=== PATIENT | female | born 1935 | race Two or more races ===

== ENCOUNTER 2019-03-23 10:02 | Inpatient (IN) | payer MEDICARE ==
[~2019-03-23] VITALS: Ht 172.7 cm; Wt 86.6 kg
--- NOTE | 2019-03-23 10:06 | NUR ---
PT DON from [place] [facility] [place] "family called and wanted her checked they said 30min GEOLOGY TEACHER she was having weakness" PT IS AAOX3, NOT IN RESPIRATORY DISTRESS, HOOKED TO GAS PUMP ATTENDANT, KEPT RESTED AND COMFORTABLE, WILL CONTINUE TO MONITOR.
--- NOTE | 2019-03-23 10:08 | NUR ---
PT O2 SATURATION 88% ON ROOM AIR.
--- NOTE | 2019-03-23 10:10 | NUR ---
SEEN AND EXAMINED BY DR. HO.
--- NOTE | 2019-03-23 10:12 | NUR ---
IV LINE ESTABLISHED, LABS DRAWNED AND SENT TO LAB.
[2019-03-23 10:25] LABS: BASOPHILS # (AUTO) 0.1 /CMM (0.0-0.2); BASOPHILS % (AUTO) 0.8 % (0.0-2.0); EOSINOPHILS % (AUTO) 0.1 % (0.0-6.0); HEMATOCRIT 40 % (33-45); HEMOGLOBIN 13.2 g/dL (11.5-14.8); LYMPHOCYTES % (AUTO) 9.1 % (20.0-44.0); MEAN CORPUSCULAR HGB CONC 33 g/dl (31.0-36.0); MEAN CORPUSCULAR VOLUME 101 fL (82-100); MONOCYTES % (AUTO) 9.2 % (2.0-12.0); NEUTROPHILS # (AUTO) 8.9 /CMM (1.8-8.9); NEUTROPHILS % (AUTO) 80.8 % (43.0-81.0); PLATELET COUNT (AUTO) 272 /CMM (150-450); RED BLOOD CELL COUNT(AUTO) 3.94 MIL/uL (4.0-5.2)
--- NOTE | 2019-03-23 10:30 | NUR ---
PT IS WHEELED TO CT SCAN VIA [facility].
[2019-03-23 10:37] LABS: CALCIUM, SERUM 9.5 mg/dL (8.5-10.1); CARBON DIOXIDE 23 mmol/L (21-32); CHLORIDE 105 mmol/L (98-107); CREATININE 1.5 mg/dL (0.6-1.3); GLUCOSE 158 mg/dL (74-106); POTASSIUM 3.6 mmol/L (3.5-5.1); SODIUM SERUM 139 mmol/L (136-145); UREA NITROGEN, BLOOD 16 mg/dL (7-18)
[2019-03-23 10:44] LABS: ALANINE AMINOTRANSFERASE 9 U/L (12-78); ALBUMIN 3.1 g/dL (3.4-5.0); ALKALINE PHOSPHATASE 63 U/L (46-116); ASPARTATE AMINOTRANSFERASE 12 U/L (15-37); BILIRUBIN,DIRECT 0.1 mg/dL (0.0-0.2); BILIRUBIN,TOTAL 0.5 mg/dL (0.2-1.0); TOTAL PROTEIN, SERUM 7.3 g/dL (6.4-8.2)
--- NOTE | 2019-03-23 11:05 | NUR ---
URINE SPECIMEN COLLECTED AND SENT TO LAB.
[2019-03-23 11:07] LABS: BILIRUBIN,URINE Negative (NEGATIVE); BLOOD, URINE Moderate Ery/uL (NEGATIVE); COLOR,URINE Yellow (YELLOW); KETONES,URINE Negative (NEGATIVE); LEUKOCYTE ESTERASE ,URINE Large (NEGATIVE); NITRITE, URINE Positive (NEGATIVE); PROTEIN,URINE >=300 mg/dl (NEGATIVE); UGLUCOSE Negative (NEGATIVE); UROBILINOGEN,URINE 0.2 EU/dL (0.2)
[2019-03-23 11:09] LABS: APPEARANCE,URINE CLOUDY (CLEAR)
[2019-03-23 11:12] LABS: BACTERIA,URINE 1+ /HPF (None Seen); WBC,URINE 21-50 /HPF (0-3)
[2019-03-23] MEDS ORDERED: CEFTRIAXONE 1GM BAG (ER ONLY) 1 GM/50 ML PIGGYBACK IV ONE (11:30)
[2019-03-23] MEDS ORDERED: ALBUTEROL FS 2.5 MG/3 ML VIAL.NEB NEB ONE (11:30)
[2019-03-23] MEDS ORDERED: CEFTRIAXONE 1GM BAG (ER ONLY) 50 ML IV ONE (11:31)
--- NOTE | 2019-03-23 11:32 | NUR ---
CALLED NURSING SUP FOR TELE BED FOR THIS PATIENT
[2019-03-23] MEDS ORDERED: ALBUTEROL FS 2.5 MG/3 ML VIAL.NEB ONE (11:33)
--- NOTE | 2019-03-23 11:37 | NUR ---
RT AT BEDSIDE FOR BREATHING TREATMENT.
--- NOTE | 2019-03-23 11:54 | NUR ---
113-1 TELE DX UTI GEN WEAKNESS BHAVIN SIMS NP ACCEPTED
[2019-03-23 12:00] VITALS: BP 130/62
--- NOTE | 2019-03-23 12:05 | NUR ---
REPORT GIVEN TO JOLENE BULLARD FOR [facility].
[2019-03-23] MEDS ORDERED: MULT1TAB73 PO (12:09)
[2019-03-23] MEDS ORDERED: LATA2.5D7 EACHEYE (12:09)
[2019-03-23] MEDS ORDERED: FURO20TA4 PO (12:09)
[2019-03-23] MEDS ORDERED: OXYB5TAB11 PO (12:09)
[2019-03-23] MEDS ORDERED: [UNRECOGNIZED DRUG - CODE] PO (12:09)
[2019-03-23] MEDS ORDERED: TRAM50TA2 PO (12:09)
[2019-03-23] MEDS ORDERED: CHOL100062 PO (12:09)
[2019-03-23] MEDS ORDERED: ALBU2.5V38 IH (12:09)
[2019-03-23] MEDS ORDERED: PHEN97.511 PO (12:09)
[2019-03-23] MEDS ORDERED: LITH300T PO (12:09)
[2019-03-23] MEDS ORDERED: LACT1CAP97 PO (12:09)
[2019-03-23] MEDS ORDERED: METH1TAB30 PO (12:09)
[2019-03-23] MEDS ORDERED: FERR325T23 PO (12:09)
[2019-03-23] MEDS ORDERED: LEVO150T8 PO (12:09)
[2019-03-23] MEDS ORDERED: OMEP20CA10 PO (12:09)
[2019-03-23] MEDS ORDERED: FLUT1BLS IH (12:09)
[2019-03-23] MEDS ORDERED: POTA10TA15 PO (12:09)
[2019-03-23] MEDS ORDERED: NIAC500T2 PO (12:09)
[2019-03-23] MEDS ORDERED: CITA20TA16 PO (12:09)
[2019-03-23] MEDS ORDERED: VIT1CAPS9 PO (12:09)
[2019-03-23] MEDS ORDERED: CRANBERRY FRUIT PO (12:09)
[2019-03-23] MEDS ORDERED: CARB-93 PO (12:09)
[2019-03-23] MEDS ORDERED: ESTR1VAG VG (12:09)
[2019-03-23] MEDS ORDERED: GUAI240S2 PO (12:09)
[2019-03-23] MEDS ORDERED: CLON0.5T12 PO (12:09)
[2019-03-23] MEDS ORDERED: ATOR20TA PO (12:09)
[2019-03-23] MEDS ORDERED: DIME532L3 TP (12:09)
[2019-03-23] MEDS ORDERED: CETI-102 PO (12:09)
[2019-03-23] MEDS ORDERED: OLAN5TAB3 PO (12:09)
[2019-03-23] MEDS ORDERED: ALBUTEROL FS 2.5 MG/0.5 ML VIAL.NEB NEB PRN (12:30)
[2019-03-23] MEDS ORDERED: MAGNESIUM HYDROXIDE 30 ML UDC PO PRN (12:30)
[2019-03-23] MEDS ORDERED: Z GUARD REMEDY 2 OZ OINT TP PRN (12:30)
[2019-03-23] MEDS ORDERED: ONDANSETRON HCL/PF 4 MG/2 ML VIAL IVP PRN (12:30)
[2019-03-23] MEDS ORDERED: IPRATROPIUM NEB FS 0.5 MG/2.5 ML AMPUL.NEB NEB PRN (12:30)
[2019-03-23] MEDS ORDERED: ZOLPIDEM TARTRATE 5 MG TABLET PO PRN (12:30)
[2019-03-23] MEDS ORDERED: ACETAMINOPHEN 325 MG TABLET PO PRN (12:30)
[2019-03-23] MEDS ORDERED: MAG HYDROX/AL HYDROX/SIMETH 30 ML UDC PO PRN (12:30)
[2019-03-23 13:01] VITALS: BP 127/77
--- NOTE | 2019-03-23 13:50 | NUR ---
RN/TELE INITIAL NOTES RECEIVED PATIENT FROM [facility] PATIENT IS WEAK, SLIGHTLY CONFUSED, IS ON N/C 3L/MIN WITH AN O2 SATURATION 97% ALOC X2, ADMITTING DIAGNOSES GENERAL WEAKNESS, AND UTI UNDER THE CARE OF BHAVIN JAMES RN, AWNING CRAFTSPERSON. AT BEDSIDE DISCUSSING POC. PLACED ON TELE MONITOR SR 85BPM, IV 18 GAUGE ON R-HAND FLUSHED, NO S/S OF INFECTION OR INFILTRATION, SL. BODY CHECK DONE BELONGINGS CHECKED, PATIENT IS INCONTINENT. BED ALARM ON, BED LOCKED IN LOWEST POSITION. WILL CONTINUE TO MONITOR PATIENT.
[2019-03-23] MEDS: IV NS 0.9% 1,000 ML IV PRN (14:04)
[2019-03-23 16:00] VITALS: BP 125/63
[2019-03-23 16:06] VITALS: BP 125/63
--- NOTE | 2019-03-23 16:32 | NUR ---
HORSEBACK RIDING INSTRUCTOR NOTE SPOKE WITH BHAVIN SIMS RN MICROECONOMICS PROFESSOR NOTIFIED ABOUT THAT DNR \DNI WISHES AND POLST , STATED THAT WILL PLACE ORDER
--- NOTE | 2019-03-23 18:46 | NUR ---
TELE/RN NOTES PATIENT IS LOC X 2 CONFUSED, CAME IN W/ GENERALIZED WEAKNESS AND UTI. VITAL SIGNS STABLE AND HR REGULAR ON TELE MONITOR. IVF N/S RUNNING @ 75ML/H IN R HAND 18 MIRNA FLUSHING WELL WITH NO S/S OF INFECTION OR INFILTRATION. DVT PUMP PLACED. BRUISES ON ARMS DOCUMENTED AND PHOTOGRAPHED. IS ON A CARDIAC LOW FAT DIET. PATIENT IS ON 3L/MIN N/C SATURATION @97%. FAMILY AT BEDSIDE WITH PATIENT, HAD MOST OF DINNER. NOTIFIED JACOB DELCID RN, APPRENTICE/LINEMAN. ABOUT FAMILY REQUEST OF ZYPREXA AND CLOZANAPAM WHICH ARE MEDICATIONS THE CLIENT TAKES AT HOME ON A REGULAR BASIS. ENDORSED PATIENT TO NIGHT NURSE TO CONTINUE CARE AND ORDERS PRESCRIBED. BED LOCKED IN LOWEST POSITION WITH BED ALARM ON.
--- NOTE | 2019-03-23 19:10 | NUR ---
TELE/RN NOTES BETHANY RN, MONITORING AND EVALUATION ADVISOR NOTIFIED ABOUT MED RECON AND FAMILY REQUESTS.
--- NOTE | 2019-03-23 19:30 | NUR ---
RN INITIAL SHIFT NOTED RECEIVED PATIENT IN BED, AWAKE, ALERT AND ORIENTED X3. FAMILY MEMBER AT BEDSIDE, PLAN OF CARE DISCUSSED IN DETAIL WITH PATIENT AND FAMILY. ALL QUESTIONS ANSWERED ABLE. IV SITE PATENT AND INTACT, FLUSHED WITH NS, ONGOING FLUIDS ORDERED., NO S/S OF INFILTRATION OR PHLEBITIS NOTED. WILL CONTINUE TO CLOSELY MONITOR THE PATIENT
[2019-03-23 20:00] VITALS: BP 161/103
[2019-03-23] MEDS: OXYBUTYNIN CHLORIDE 5 MG TABLET PO SCH (20:28)
[2019-03-23] MEDS: LACTOBACILLUS RHAMNOSUS GG 1 EACH CAP.SPRINK PO SCH (20:28)
[2019-03-23] MEDS: CARBIDOPA/LEVODOPA 25/100 MG 1 UDTAB PO SCH (20:28)
[2019-03-23] MEDS: FERROUS SULFATE (325 MG) 325 MG/TAB TABLET PO SCH (20:28)
[2019-03-23 20:30] VITALS: BP 147/81
[2019-03-23] MEDS: ATORVASTATIN 10 MG TABLET PO SCH (21:19)
[2019-03-23] MEDS: clonazePAM 0.5 MG TABLET PO SCH (21:19)
[2019-03-23] MEDS: OLANZAPINE 5 MG TABLET PO SCH (21:19)
[2019-03-23] MEDS: LATANOPROST EYE DROP 0.005% 2.5 ML BOTTLE EACHEYE SCH (21:19)
[2019-03-24] MEDS: IV NS 0.9% 1,000 ML IV PRN ×2 (02:40→21:12)
[2019-03-24 04:00] VITALS: BP 132/42
[2019-03-24 07:16] LABS: BASOPHILS % (AUTO) 0.4 % (0.0-2.0); EOSINOPHILS % (AUTO) 0.6 % (0.0-6.0); HEMATOCRIT 33 % (33-45); HEMOGLOBIN 11.1 g/dL (11.5-14.8); LYMPHOCYTES # (AUTO) 1.6 /CMM (0.8-4.8); LYMPHOCYTES % (AUTO) 16.6 % (20.0-44.0); MEAN CORPUSCULAR HGB CONC 34 g/dl (31.0-36.0); MEAN CORPUSCULAR VOLUME 99 fL (82-100); MONOCYTES # (AUTO) 1.5 /CMM (0.1-1.30); MONOCYTES % (AUTO) 15.4 % (2.0-12.0); NEUTROPHILS # (AUTO) 6.6 /CMM (1.8-8.9); PLATELET COUNT (AUTO) 220 /CMM (150-450); RED BLOOD CELL COUNT(AUTO) 3.32 MIL/uL (4.0-5.2); WHITE BLOOD COUNT (AUTO) 9.8 K/uL (4.3-11.0)
--- NOTE | 2019-03-24 07:19 | NUR ---
RN OPENING NOTES RECEIVED PATIENT ASLEEP, BUT EASILY AROUSABLE. NO PAIN OR SOB. ON ROOM AIR. PATIENT IS INCONTINENT AND USES A DIAPER. HAS IVF NS RUNNING AT 75 ML/HR. MORNING LABS STILL PENDING. BED LOCKED AND IN LOWEST POSITION. CALL LIGHT WITHIN REACH. WILL CONT TO MONITOR PATIENT
[2019-03-24] MEDS: LEVOTHYROXINE SODIUM 75 MCG TABLET PO SCH (07:49)
[2019-03-24] MEDS: PANTOPRAZOLE 40 MG TABLET.DR PO SCH (07:50)
[2019-03-24 07:59] LABS: CALCIUM, SERUM 8.6 mg/dL (8.5-10.1); CARBON DIOXIDE 23 mmol/L (21-32); CHLORIDE 109 mmol/L (98-107); CREATININE 1.2 mg/dL (0.6-1.3); GLUCOSE 121 mg/dL (74-106); MAGNESIUM 2.1 mg/dL (1.8-2.4); PHOSPHORUS 3.4 mg/dL (2.5-4.9); POTASSIUM 3.3 mmol/L (3.5-5.1); SODIUM SERUM 142 mmol/L (136-145); UREA NITROGEN, BLOOD 17 mg/dL (7-18)
[2019-03-24 08:00] VITALS: BP 124/60
[2019-03-24 08:19] LABS: CHOLESTEROL 130 mg/dL (<200); HDL CHOLESTEROL 70 mg/dL (40-60); LDL 49 mg/dL (0-99); TRIGLYCERIDES 97 mg/dL (30-150)
[2019-03-24] MEDS: FLUTICASONE/VILANTEROL 1 EACH BLST.W.DEV IH SCH (08:54)
[2019-03-24] MEDS: cetrizine 10 MG TABLET PO SCH (08:55)
[2019-03-24] MEDS: CARBIDOPA/LEVODOPA 25/100 MG 1 UDTAB PO SCH ×3 (08:55→16:10)
[2019-03-24] MEDS: CITALOPRAM HYDROBROMIDE 20 MG TABLET PO SCH (08:55)
[2019-03-24] MEDS: MULTIVITAMINS,THERAGRAN 1 UDTAB TABLET PO SCH (08:55)
[2019-03-24] MEDS: FUROSEMIDE 20 MG TABLET PO SCH (08:55)
[2019-03-24] MEDS: FERROUS SULFATE (325 MG) 325 MG/TAB TABLET PO SCH ×2 (08:55→16:08)
[2019-03-24] MEDS: CHOLECALCIFEROL 1,000 UNIT TABLET (VIT D3) PO SCH (08:55)
[2019-03-24] MEDS: LACTOBACILLUS RHAMNOSUS GG 1 EACH CAP.SPRINK PO SCH ×2 (08:56→16:08)
[2019-03-24] MEDS: OXYBUTYNIN CHLORIDE 5 MG TABLET PO SCH ×3 (08:56→16:10)
[2019-03-24] MEDS ORDERED: POTASSIUM CHLORIDE 20 MEQ TAB.PRT.SR PO ONE (09:00)
[2019-03-24] MEDS: CEFTRIAXONE 1 G in IV D5W 50 ML IV SCH (12:24)
--- NOTE | 2019-03-24 13:00 | NUR ---
RN NOTE FAMILY ASKING WHEN THE PATIENT WILL HAVE ECHO. MD MADE AWARE, MD ORDERED ECHO TO BE DONE TODAY
[2019-03-24 16:00] VITALS: BP 130/68
--- NOTE | 2019-03-24 16:52 | NUR ---
RN NOTE FAMILY REQUESTED TO HAVE THE BREATHING TX SCHEDULED BID INSTEAD OF PRN. MD MADE AWARE, ORDER CARRIED OUT
--- NOTE | 2019-03-24 18:50 | NUR ---
RN CLOSING NOTE PATIENT STABLE THROUGHOUT THE SHIFT. NO PAIN NOR SOB NOTED. ALL MEDS TAKEN. VS STABLE. 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 BREATHING TX CHANGED TO BID FROM PRN. WILL ENDORSE TO NOC SHIFT RN.
--- NOTE | 2019-03-24 19:30 | NUR ---
RN NOTES RECEIVED PT AWAKE ON BED, A/OX 2-3, IV LINE INFILTRATED , DENIES PAIN, NO SOB, CALL LIGHT WITHIN REACH, [id number], CONTINUE TO MONITOR
[2019-03-24 20:00] VITALS: BP 127/65
[2019-03-24 20:19] VITALS: BP 127/65
[2019-03-24] MEDS: LATANOPROST EYE DROP 0.005% 2.5 ML BOTTLE EACHEYE SCH (21:17)
[2019-03-24] MEDS: ATORVASTATIN 10 MG TABLET PO SCH (21:18)
[2019-03-24] MEDS: OLANZAPINE 5 MG TABLET PO SCH (21:18)
[2019-03-24] MEDS: clonazePAM 0.5 MG TABLET PO SCH (21:18)
--- NOTE | 2019-03-24 21:30 | NUR ---
RN NOTES new iv line was inserted to left forearm by another nurse
[2019-03-25 03:56] VITALS: BP 130/70
[2019-03-25 04:00] VITALS: BP 130/70
--- NOTE | 2019-03-25 06:19 | NUR ---
RN NOTES AWAKE, DENIES PAIN, NO SOB, REFUSED TO BE CHANGE.. PT WANTS TO DO IT LATER, CALL LIGHT WITHIN REACH, [id number], PT. NEEDS ATTENDED
[2019-03-25 06:51] LABS: BASOPHILS % (AUTO) 0.4 % (0.0-2.0); EOSINOPHILS % (AUTO) 1.8 % (0.0-6.0); HEMATOCRIT 32 % (33-45); HEMOGLOBIN 10.9 g/dL (11.5-14.8); LYMPHOCYTES # (AUTO) 1.9 /CMM (0.8-4.8); MEAN CORPUSCULAR HGB CONC 34 g/dl (31.0-36.0); MEAN CORPUSCULAR VOLUME 99 fL (82-100); MONOCYTES # (AUTO) 1.1 /CMM (0.1-1.30); MONOCYTES % (AUTO) 13.8 % (2.0-12.0); PLATELET COUNT (AUTO) 220 /CMM (150-450); RED BLOOD CELL COUNT(AUTO) 3.23 MIL/uL (4.0-5.2); WHITE BLOOD COUNT (AUTO) 8.2 K/uL (4.3-11.0)
--- NOTE | 2019-03-25 07:15 | NUR ---
RN MS OPENING NOTES RECEIVED REPORT FROM AGRISCIENCE TEACHER RN. PT IS ASLEEP IN BED WITH NO OBVIOUS SIGNS OF DISTRESS NOTED. BED IS LOCKED AND IN LOWEST POSITION WITH CALL LIGHT IN REACH. WILL CONTINUE TO MONITOR.
[2019-03-25 07:19] LABS: CALCIUM, SERUM 8.8 mg/dL (8.5-10.1); CARBON DIOXIDE 23 mmol/L (21-32); CHLORIDE 111 mmol/L (98-107); CREATININE 1.3 mg/dL (0.6-1.3); GLUCOSE 124 mg/dL (74-106); MAGNESIUM 2.2 mg/dL (1.8-2.4); PHOSPHORUS 3.4 mg/dL (2.5-4.9); POTASSIUM 3.9 mmol/L (3.5-5.1); SODIUM SERUM 143 mmol/L (136-145); UREA NITROGEN, BLOOD 17 mg/dL (7-18)
[2019-03-25 08:00] VITALS: BP 119/72
[2019-03-25] MEDS: LEVOTHYROXINE SODIUM 75 MCG TABLET PO SCH (08:04)
[2019-03-25] MEDS: PANTOPRAZOLE 40 MG TABLET.DR PO SCH (08:04)
[2019-03-25] MEDS: MULTIVITAMINS,THERAGRAN 1 UDTAB TABLET PO SCH (08:54)
[2019-03-25] MEDS: OXYBUTYNIN CHLORIDE 5 MG TABLET PO SCH ×3 (08:54→17:15)
[2019-03-25] MEDS: CHOLECALCIFEROL 1,000 UNIT TABLET (VIT D3) PO SCH (08:54)
[2019-03-25] MEDS: cetrizine 10 MG TABLET PO SCH (08:54)
[2019-03-25] MEDS: CITALOPRAM HYDROBROMIDE 20 MG TABLET PO SCH (08:54)
[2019-03-25] MEDS: LACTOBACILLUS RHAMNOSUS GG 1 EACH CAP.SPRINK PO SCH ×2 (08:54→17:14)
[2019-03-25] MEDS: FERROUS SULFATE (325 MG) 325 MG/TAB TABLET PO SCH ×2 (08:54→17:15)
[2019-03-25] MEDS: FUROSEMIDE 20 MG TABLET PO SCH (08:54)
[2019-03-25] MEDS: CARBIDOPA/LEVODOPA 25/100 MG 1 UDTAB PO SCH ×3 (08:54→17:15)
[2019-03-25] MEDS: FLUTICASONE/VILANTEROL 1 EACH BLST.W.DEV IH SCH (08:55)
[2019-03-25] MEDS: CEFTRIAXONE 1 G in IV D5W 50 ML IV SCH (12:37)
[2019-03-25 16:00] VITALS: BP 128/60
[2019-03-25] MEDS: IPRATROPIUM NEB FS 0.5 MG/2.5 ML AMPUL.NEB NEB SCH ×2 (17:17→18:00)
--- NOTE | 2019-03-25 18:40 | NUR ---
RN MS CLOSING NOTES PT IS RESTING IN BED WITH DAUGHTER AT BEDSIDE. PT DENIES ANY PAIN OR SOB AT PRESENT TIME. BED IS LOCKED AND IN LOWEST POSITION WITH CALL LIGHT IN REACH. BEDSIDE COMMODE IS NEXT TO BED. PT HAS A L FOREARM 22 GAUGE SL. DAUGHTER AT BEDSIDE. WILL ENDORSE CONTINUITY OF CARE TO IT INFRASTRUCTURE ARCHITECT NURSE.
--- NOTE | 2019-03-25 18:56 | NUR ---
DAUGHTER OF PT IS REQUESTING NEUROLOGICAL CONSULT TO CONTACT HEROllie ABDUL
--- NOTE | 2019-03-25 19:00 | NUR ---
MS RN OPENING NOTES Received patient sitting up in bed, alert, oriented x 2. Breathing even and unlabored. On O2 at 2L via nasal cannula. Noted that IV line was out. Safety measures in place, call light within reach. Bed in low, locked position. Will continue to monitor accordingly
--- NOTE | 2019-03-25 19:45 | NUR ---
RN NOTES New IV line on LFA g#22, intact and patent. Wrapped with kerlix
[2019-03-25 20:00] VITALS: BP 139/67
[2019-03-25] MEDS: CEPHALEXIN MONOHYDRATE 500 MG CAPSULE PO SCH (20:57)
[2019-03-25] MEDS ORDERED: SULFAMETH/TRIMETH 800/160 MG 1 UDTAB TABLET PO SCH (21:00)
[2019-03-25] MEDS: LATANOPROST EYE DROP 0.005% 2.5 ML BOTTLE EACHEYE SCH (21:24)
[2019-03-25] MEDS: clonazePAM 0.5 MG TABLET PO SCH (21:25)
[2019-03-25] MEDS: ATORVASTATIN 10 MG TABLET PO SCH (21:26)
[2019-03-25] MEDS: OLANZAPINE 5 MG TABLET PO SCH (21:27)
[2019-03-26 04:00] VITALS: BP 139/67
[2019-03-26] MEDS: CEPHALEXIN MONOHYDRATE 500 MG CAPSULE PO SCH (04:48)
--- NOTE | 2019-03-26 06:30 | NUR ---
MS RN CLOSING NOTES Patient resting in bed. No acute change throughout the shift. On O2 @ 2LPM via NC. All needs attended and met. Safety measures in place. Will endorse continuity of care to oncoming RN.
[2019-03-26 07:14] LABS: ALANINE AMINOTRANSFERASE 17 U/L (12-78); ALBUMIN 2.2 g/dL (3.4-5.0); ALKALINE PHOSPHATASE 49 U/L (46-116); ASPARTATE AMINOTRANSFERASE 18 U/L (15-37); BILIRUBIN,TOTAL 0.3 mg/dL (0.2-1.0); CALCIUM, SERUM 8.6 mg/dL (8.5-10.1); CARBON DIOXIDE 24 mmol/L (21-32); CHLORIDE 111 mmol/L (98-107); CREATININE 1.2 mg/dL (0.6-1.3); GLUCOSE 123 mg/dL (74-106); MAGNESIUM 2.1 mg/dL (1.8-2.4); PHOSPHORUS 3.3 mg/dL (2.5-4.9); POTASSIUM 3.8 mmol/L (3.5-5.1); SODIUM SERUM 145 mmol/L (136-145); TOTAL PROTEIN, SERUM 5.7 g/dL (6.4-8.2); UREA NITROGEN, BLOOD 17 mg/dL (7-18)
--- NOTE | 2019-03-26 07:15 | NUR ---
RN OPENING NOTES RECEIVED BEDSIDE REPORT FROM NOC SHIFT, PATIENT IN BED ASLEEP BUT EASILY AROUSABLE. HAS BILATERAL ARM BRUISES. HAS A LEFT FOREARM #22 SALINE LOCKED. AM LABS STILL PENDING. NEURO CONSULT TODAY AND POSSIBLE D/C. BED LOCKED AND IN LOWEST POSITION. CALL LIGHT WITHIN REACH. WILL CONT TO MONITOR.
[2019-03-26 07:27] LABS: BASOPHILS % (AUTO) 0.6 % (0.0-2.0); EOSINOPHILS % (AUTO) 4.5 % (0.0-6.0); HEMATOCRIT 32 % (33-45); LYMPHOCYTES # (AUTO) 1.7 /CMM (0.8-4.8); LYMPHOCYTES % (AUTO) 22.3 % (20.0-44.0); MEAN CORPUSCULAR HGB CONC 34 g/dl (31.0-36.0); MEAN CORPUSCULAR VOLUME 99 fL (82-100); MONOCYTES # (AUTO) 0.9 /CMM (0.1-1.30); NEUTROPHILS # (AUTO) 4.6 /CMM (1.8-8.9); NEUTROPHILS % (AUTO) 60.6 % (43.0-81.0); PLATELET COUNT (AUTO) 228 /CMM (150-450); RED BLOOD CELL COUNT(AUTO) 3.26 MIL/uL (4.0-5.2); WHITE BLOOD COUNT (AUTO) 7.6 K/uL (4.3-11.0)
[2019-03-26 08:00] VITALS: BP 116/77
[2019-03-26] MEDS: FLUTICASONE/VILANTEROL 1 EACH BLST.W.DEV IH SCH (08:21)
[2019-03-26] MEDS: CHOLECALCIFEROL 1,000 UNIT TABLET (VIT D3) PO SCH (08:22)
[2019-03-26] MEDS: LACTOBACILLUS RHAMNOSUS GG 1 EACH CAP.SPRINK PO SCH (08:22)
[2019-03-26] MEDS: FERROUS SULFATE (325 MG) 325 MG/TAB TABLET PO SCH (08:22)
[2019-03-26] MEDS: MULTIVITAMINS,THERAGRAN 1 UDTAB TABLET PO SCH (08:22)
[2019-03-26] MEDS: LEVOTHYROXINE SODIUM 75 MCG TABLET PO SCH (08:22)
[2019-03-26] MEDS: cetrizine 10 MG TABLET PO SCH (08:23)
[2019-03-26] MEDS: CITALOPRAM HYDROBROMIDE 20 MG TABLET PO SCH (08:23)
[2019-03-26] MEDS: PANTOPRAZOLE 40 MG TABLET.DR PO SCH (08:23)
[2019-03-26] MEDS: CARBIDOPA/LEVODOPA 25/100 MG 1 UDTAB PO SCH (08:23)
[2019-03-26] MEDS: FUROSEMIDE 20 MG TABLET PO SCH (08:23)
[2019-03-26] MEDS: OXYBUTYNIN CHLORIDE 5 MG TABLET PO SCH (08:24)
[2019-03-26] MEDS ORDERED: CEPH500C2 PO (09:15)
[2019-03-26] MEDS: IPRATROPIUM NEB FS 0.5 MG/2.5 ML AMPUL.NEB NEB SCH (09:45)
[2019-03-26] MEDS ORDERED: CARB-93 PO ×2 (11:47→11:49)
--- NOTE | 2019-03-26 12:42 | NUR ---
RN NOTE PATIENT LEFT VIA WHEELCHAIR WITH HER DAUGHTER NINFA ON A PRIVATE CARE. LEFT ON A STABLE CONDITION. ALL MORNING MEDS GIVEN. BHAVIN SANTIAGO HAS SEEN THE PATIENT THIS MORNING WITH THE DAUGHTER ON BEDSIDE.
== END 2019-03-26 12:35 | DRG 682 ==
LOC: ER 10:02 → TELE1 12:55 → MEDSG1 21:07
PROVIDERS: ADMIT Nurse Practitioner Acute Care; ATTEND Nurse Practitioner Acute Care
DX: N17.0 Acute kidney failure with tubular necrosis (principal); G93.41 Metabolic encephalopathy; J96.91 Respiratory failure, unspecified with hypoxia; R53.2 Functional quadriplegia; E44.1 Mild protein-calorie malnutrition; D68.59 Other primary thrombophilia; N39.0 Urinary tract infection, site not specified; G20 Parkinson's disease; B96.20 Unspecified Escherichia coli [E. coli] as the cause of diseases classified elsewhere; E86.0 Dehydration; E78.00 Pure hypercholesterolemia, unspecified; F02.80 Dementia in other diseases classified elsewhere, unspecified severity, without behavioral disturbance, psychotic disturbance, mood disturbance, and anxiety; Z87.440 Personal history of urinary (tract) infections; D53.9 Nutritional anemia, unspecified; Z90.710 Acquired absence of both cervix and uterus; E88.09 Other disorders of plasma-protein metabolism, not elsewhere classified; N18.9 Chronic kidney disease, unspecified; I12.9 Hypertensive chronic kidney disease with stage 1 through stage 4 chronic kidney disease, or unspecified chronic kidney disease
CPT/HCPCS: 36415; 70450-TC; 71045-TC; 80048-TC; 80053-TC; 80061-TC; 80076-TC; 81000-TC; 83605-TC; 83735-TC; 84100-TC; 84484-TC; 85025-TC; 85730-TC; 87040-TC; 87081-TC; 87086-TC; 87186-TC; 93307-TC; 97530-TC; G0378; J0696; J7030; J7060